=== PATIENT | male | born 1970 | race Caucasian/White ===

== ENCOUNTER 2018-01-08 23:56 | Emergency (ER) | payer MEDICAID ==
[~2018-01-08] VITALS: Ht 170.2 cm; Wt 63.1 kg
[~2018-01-08 23:56] MED LIST: LORA-445 PO; PALI234D IM; QUET100T4 PO; RISP2TAB35 PO
[2018-01-09 01:37] LABS: BASOPHILS # (AUTO) 0.02 x10^3/uL (0-0.1); BASOPHILS % (AUTO) 0 % (0-1); EOSINOPHILS # (AUTO) 0.15 x10^3/uL (0-0.4); EOSINOPHILS % (AUTO) 2 % (1-7); LYMPHOCYTES # (AUTO) 1.46 x10^3/uL (1-3.4); LYMPHOCYTES % (AUTO) 20 % (22-44); MD NO; MEAN CORPUSCULAR HEMOGLOBIN 30.1 pg (27.5-34.5); MEAN CORPUSCULAR HGB CONC 33.2 g/dL (33.2-36.2); MEAN CORPUSCULAR VOLUME 90.6 fL (81-97); MEAN PLATELET VOLUME 7.4 fL (7.4-10.4); MONOCYTES % (AUTO) 12 % (2-9); NEUTROPHILS # (AUTO) 4.97 x10^3/uL (1.8-6.8); NEUTROPHILS % (AUTO) 66 % (42-75); PLATELET COUNT 249 x10^3/uL (130-400); RED BLOOD COUNT 4.81 x10^6/uL (4.38-5.82); RED CELL DISTRIBUTION WIDTH 14.9 % (9.4-14.8)
[2018-01-09 01:45] LABS: ALANINE AMINOTRANSFERASE 20 U/L (12-78); ALBUMIN 3.4 g/dL (3.4-5.0); ANION GAP 7 mmol/L (5-15); CALCIUM 8.2 mg/dL (8.5-10.1); CHLORIDE 109 mmol/L (98-107); CREATININE 0.98 mg/dL (0.7-1.3)
[2018-01-09 01:47] LABS: ALKALINE PHOSPHATASE 59 U/L (45-117); BILIRUBIN,TOTAL 0.3 mg/dL (0.2-1.0); TOTAL PROTEIN 6.6 g/dL (6.4-8.2)
[2018-01-09 02:11] VITALS: BP 110/67
== END 2018-01-09 02:14 | disposition home or self-care (01) ==
LOC: ED 23:59
DX: R10.9 Unspecified abdominal pain (principal); Z72.9 Problem related to lifestyle, unspecified
CPT/HCPCS: 36415; 80053; 83690; 85025; 99284

== ENCOUNTER 2018-04-20 17:04 | Emergency (ER) | payer MEDICAID ==
[~2018-04-20] VITALS: Ht 177.8 cm; Wt 70.0 kg
[2018-04-20 17:38] VITALS: BP 92/53
[2018-04-20 18:03] LABS: BASOPHILS # (AUTO) 0.07 x10^3/uL (0-0.1); BASOPHILS % (AUTO) 1 % (0-1); EOSINOPHILS # (AUTO) 0.34 x10^3/uL (0-0.4); EOSINOPHILS % (AUTO) 5 % (1-7); LYMPHOCYTES # (AUTO) 1.72 x10^3/uL (1-3.4); LYMPHOCYTES % (AUTO) 27 % (22-44); MD NO; MEAN CORPUSCULAR HEMOGLOBIN 30.4 pg (27.5-34.5); MEAN CORPUSCULAR HGB CONC 33.8 g/dL (33.2-36.2); MEAN CORPUSCULAR VOLUME 89.8 fL (81-97); MEAN PLATELET VOLUME 7.4 fL (7.4-10.4); MONOCYTES # (AUTO) 0.58 x10^3/uL (0.2-0.8); MONOCYTES % (AUTO) 9 % (2-9); NEUTROPHILS % (AUTO) 57 % (42-75); PLATELET COUNT 251 x10^3/uL (130-400); RED BLOOD COUNT 4.66 x10^6/uL (4.38-5.82); RED CELL DISTRIBUTION WIDTH 14.8 % (9.4-14.8)
[2018-04-20 18:12] LABS: ALBUMIN 3.3 g/dL (3.4-5.0); ANION GAP 7 mmol/L (5-15); CHLORIDE 110 mmol/L (98-107); CREATININE 0.98 mg/dL (0.7-1.3); SALICYLATE LEVEL 3.8 mg/dL (2.8-20.0)
[2018-04-20 18:16] LABS: ACETAMINOPHEN < 2 mcg/mL (10-30)
== END 2018-04-20 18:48 | disposition home or self-care (01) ==
LOC: ED 18:25
DX: Z00.00 Encounter for general adult medical examination without abnormal findings (principal); R62.7 Adult failure to thrive; F17.200 Nicotine dependence, unspecified, uncomplicated
CPT/HCPCS: 36415; 80048; 80307; 80329; 82040; 85025; 99284; G0480

== ENCOUNTER 2018-04-21 17:57 | Emergency (ER) | payer MEDICAID ==
[2018-04-21 18:05] VITALS: BP 146/70
[2018-04-21] MEDS ORDERED: MAALOX/HYOSCYAMINE/LIDOCAINE 45 ML BTL ONE (18:07)
[2018-04-21] MEDS ORDERED: MAALOX/HYOSCYAMINE/LIDOCAINE 45 ML BTL PO ONE (18:30)
[2018-04-21 18:38] LABS: ALANINE AMINOTRANSFERASE 15 U/L (12-78); ALBUMIN 3.3 g/dL (3.4-5.0); ANION GAP 6 mmol/L (5-15); CALCIUM 8.7 mg/dL (8.5-10.1); CHLORIDE 110 mmol/L (98-107); CREATININE 1.14 mg/dL (0.7-1.3)
[2018-04-21 18:40] LABS: ALKALINE PHOSPHATASE 68 U/L (45-117); BILIRUBIN,TOTAL 0.3 mg/dL (0.2-1.0); TOTAL PROTEIN 6.8 g/dL (6.4-8.2)
[2018-04-21 18:50] LABS: BASOPHILS # (AUTO) 0.04 x10^3/uL (0-0.1); BASOPHILS % (AUTO) 0 % (0-1); EOSINOPHILS # (AUTO) 0.22 x10^3/uL (0-0.4); EOSINOPHILS % (AUTO) 2 % (1-7); LYMPHOCYTES # (AUTO) 1.27 x10^3/uL (1-3.4); LYMPHOCYTES % (AUTO) 13 % (22-44); MD NO; MEAN CORPUSCULAR HEMOGLOBIN 30.2 pg (27.5-34.5); MEAN CORPUSCULAR HGB CONC 33.8 g/dL (33.2-36.2); MEAN CORPUSCULAR VOLUME 89.4 fL (81-97); MEAN PLATELET VOLUME 7.6 fL (7.4-10.4); MONOCYTES # (AUTO) 0.52 x10^3/uL (0.2-0.8); MONOCYTES % (AUTO) 5 % (2-9); NEUTROPHILS # (AUTO) 7.58 x10^3/uL (1.8-6.8); NEUTROPHILS % (AUTO) 79 % (42-75); PLATELET COUNT 290 x10^3/uL (130-400); RED BLOOD COUNT 5.01 x10^6/uL (4.38-5.82)
== END 2018-04-21 19:22 | disposition home or self-care (01) ==
LOC: ED 19:15
DX: R10.12 Left upper quadrant pain (principal)
CPT/HCPCS: 36415; 80053; 83690; 85025; 93005; 99285

== ENCOUNTER 2018-05-23 11:03 | Emergency (ER) | payer MEDICAID | END 2018-05-23 12:19 | disposition left against medical advice (07) | LOC: ED 12:13 | DX: R51 Headache (principal); Z53.21 Procedure and treatment not carried out due to patient leaving prior to being seen by health care provider ==

== ENCOUNTER 2018-06-10 09:03 | Emergency (ER) | payer MEDICAID ==
[~2018-06-10] VITALS: Ht 172.7 cm; Wt 61.3 kg
[2018-06-10 09:08] VITALS: BP 93/62
[2018-06-10] MEDS ORDERED: ALBUTEROL/IPRATROPIUM 2.5MG/0.5MG, 3 ML NPPB SCH (10:00)
[2018-06-10] MEDS ORDERED: ALBUTEROL/IPRATROPIUM 2.5MG/0.5MG, 3 ML ONE (10:13)
== END 2018-06-10 10:34 | disposition home or self-care (01) ==
LOC: ED 10:20
DX: J00 Acute nasopharyngitis [common cold] (principal); F17.210 Nicotine dependence, cigarettes, uncomplicated
CPT/HCPCS: 71046; 94640; 99284; J7620

== ENCOUNTER 2018-07-19 19:54 | Emergency (ER) | payer MEDICAID ==
[~2018-07-19] VITALS: Ht 172.7 cm; Wt 61.9 kg
[~2018-07-19 19:54] MED LIST changes: +RISP0.2518 PO
[2018-07-19 21:02] LABS: BASOPHILS # (AUTO) 0.03 x10^3/uL (0-0.1); BASOPHILS % (AUTO) 0 % (0-1); EOSINOPHILS # (AUTO) 0.25 x10^3/uL (0-0.4); EOSINOPHILS % (AUTO) 3 % (1-7); LYMPHOCYTES # (AUTO) 1.77 x10^3/uL (1-3.4); LYMPHOCYTES % (AUTO) 21 % (22-44); MD NO; MEAN CORPUSCULAR HEMOGLOBIN 30.8 pg (27.5-34.5); MEAN CORPUSCULAR VOLUME 90.8 fL (81-97); MEAN PLATELET VOLUME 7.3 fL (7.4-10.4); MONOCYTES % (AUTO) 6 % (2-9); NEUTROPHILS # (AUTO) 5.86 x10^3/uL (1.8-6.8); NEUTROPHILS % (AUTO) 70 % (42-75); PLATELET COUNT 275 x10^3/uL (130-400); RED BLOOD COUNT 4.92 x10^6/uL (4.38-5.82); RED CELL DISTRIBUTION WIDTH 14.9 % (9.4-14.8)
[2018-07-19 21:18] LABS: ALANINE AMINOTRANSFERASE 19 U/L (12-78); ALBUMIN 3.7 g/dL (3.4-5.0); ANION GAP 6 mmol/L (5-15); CALCIUM 8.8 mg/dL (8.5-10.1); CHLORIDE 111 mmol/L (98-107)
[2018-07-19 21:20] LABS: ALKALINE PHOSPHATASE 68 U/L (45-117); BILIRUBIN,TOTAL 0.2 mg/dL (0.2-1.0); CREATININE 1.81 mg/dL (0.7-1.3); TOTAL PROTEIN 7.3 g/dL (6.4-8.2)
[2018-07-20 00:25] LABS: CULTURE INDICATED? NO; MICROSCOPIC NOT IND
[2018-07-20] MEDS ORDERED: METOCLOPRAMIDE 5 MG/ML, 2ML IVPush ONE (01:00)
[2018-07-20] MEDS ORDERED: SODIUM CHLORIDE 0.9% 1,000ML IVBOLUS ONE (01:00)
[2018-07-20] MEDS ORDERED: METOCLOPRAMIDE 5 MG/ML, 2ML ONE (01:13)
[2018-07-20 01:50] LABS: AMPHETAMINE SCREEN, URINE Positive (Negative); BARBITURATE SCREEN, URINE Negative (Negative); BENZODIAZEPINE SCREEN, URINE Negative (Negative); CANNABINOID SCREEN, URINE Negative (Negative); COCAINE SCREEN, URINE Negative (Negative); METHADONE SCREEN, URINE Negative (Negative); OPIATE SCREEN, URINE Negative (Negative)
[2018-07-20 02:29] VITALS: BP 102/61
== END 2018-07-20 02:31 | disposition home or self-care (01) ==
LOC: ED 07-20 00:07
DX: R11.2 Nausea with vomiting, unspecified (principal); E86.0 Dehydration; F15.129 Other stimulant abuse with intoxication, unspecified; N17.9 Acute kidney failure, unspecified
CPT/HCPCS: 36415; 80053; 80307; 81003; 85025; 96361; 96374; 99284; J2765; J7030

== ENCOUNTER 2018-07-20 15:09 | Emergency (ER) | payer MEDICAID ==
[~2018-07-20] VITALS: Ht 172.7 cm; Wt 62.0 kg
[2018-07-20] MEDS ORDERED: ONDANSETRON ODT 4 MG PO ONE (15:30)
[2018-07-20] MEDS ORDERED: ONDANSETRON ODT 4 MG ONE (15:33)
[2018-07-20 15:48] LABS: BASOPHILS # (AUTO) 0.05 x10^3/uL (0-0.1); BASOPHILS % (AUTO) 1 % (0-1); EOSINOPHILS # (AUTO) 0.11 x10^3/uL (0-0.4); EOSINOPHILS % (AUTO) 1 % (1-7); LYMPHOCYTES # (AUTO) 1.34 x10^3/uL (1-3.4); LYMPHOCYTES % (AUTO) 18 % (22-44); MD NO; MEAN CORPUSCULAR HEMOGLOBIN 30.8 pg (27.5-34.5); MEAN CORPUSCULAR HGB CONC 33.7 g/dL (33.2-36.2); MEAN CORPUSCULAR VOLUME 91.2 fL (81-97); MEAN PLATELET VOLUME 7.3 fL (7.4-10.4); MONOCYTES % (AUTO) 8 % (2-9); NEUTROPHILS # (AUTO) 5.54 x10^3/uL (1.8-6.8); NEUTROPHILS % (AUTO) 73 % (42-75); PLATELET COUNT 285 x10^3/uL (130-400); RED BLOOD COUNT 4.71 x10^6/uL (4.38-5.82); RED CELL DISTRIBUTION WIDTH 14.5 % (9.4-14.8)
[2018-07-20 15:54] LABS: ALBUMIN 3.5 g/dL (3.4-5.0); ANION GAP 4 mmol/L (5-15); CALCIUM 8.6 mg/dL (8.5-10.1); CHLORIDE 107 mmol/L (98-107); CREATININE 1.34 mg/dL (0.7-1.3)
[2018-07-20 16:17] VITALS: BP 98/63
== END 2018-07-20 17:14 | disposition home or self-care (01) ==
LOC: ED 16:56
DX: R11.2 Nausea with vomiting, unspecified (principal); E86.0 Dehydration; N17.9 Acute kidney failure, unspecified
CPT/HCPCS: 36415; 80048; 82040; 85025; 99284; Q0162

== ENCOUNTER 2018-07-20 17:26 | Emergency (ER) | payer MEDICAID ==
[~2018-07-20] VITALS: Ht 172.7 cm; Wt 62.3 kg
[2018-07-20 17:27] VITALS: BP 100/63
[2018-07-20] MEDS ORDERED: ONDANSETRON ODT 4 MG PO ONE (18:00)
[2018-07-20] MEDS ORDERED: ONDANSETRON ODT 4 MG ONE (18:02)
== END 2018-07-20 18:31 | disposition home or self-care (01) ==
LOC: ED 18:25
DX: R11.2 Nausea with vomiting, unspecified (principal)
CPT/HCPCS: 99283; Q0162

== ENCOUNTER 2018-08-11 19:41 | Emergency (ER) | payer MEDICAID ==
[~2018-08-11] VITALS: Ht 172.7 cm; Wt 63.3 kg
[2018-08-11 19:47] VITALS: BP 100/62
[2018-08-11 20:13] LABS: BASOPHILS # (AUTO) 0.04 x10^3/uL (0-0.1); BASOPHILS % (AUTO) 1 % (0-1); EOSINOPHILS # (AUTO) 0.25 x10^3/uL (0-0.4); EOSINOPHILS % (AUTO) 3 % (1-7); LYMPHOCYTES # (AUTO) 2.18 x10^3/uL (1-3.4); LYMPHOCYTES % (AUTO) 27 % (22-44); MD NO; MEAN CORPUSCULAR HEMOGLOBIN 30.2 pg (27.5-34.5); MEAN CORPUSCULAR HGB CONC 33.3 g/dL (33.2-36.2); MEAN CORPUSCULAR VOLUME 90.7 fL (81-97); MONOCYTES # (AUTO) 0.54 x10^3/uL (0.2-0.8); MONOCYTES % (AUTO) 7 % (2-9); NEUTROPHILS # (AUTO) 5.16 x10^3/uL (1.8-6.8); NEUTROPHILS % (AUTO) 63 % (42-75); PLATELET COUNT 303 x10^3/uL (130-400); RED BLOOD COUNT 4.62 x10^6/uL (4.38-5.82); RED CELL DISTRIBUTION WIDTH 14.5 % (9.4-14.8)
[2018-08-11 20:22] LABS: ALANINE AMINOTRANSFERASE 14 U/L (12-78); ALBUMIN 3.5 g/dL (3.4-5.0); ANION GAP 5 mmol/L (5-15); CALCIUM 8.5 mg/dL (8.5-10.1); CHLORIDE 108 mmol/L (98-107); CREATININE 0.99 mg/dL (0.7-1.3)
[2018-08-11 20:24] LABS: ALKALINE PHOSPHATASE 69 U/L (45-117); BILIRUBIN,TOTAL 0.4 mg/dL (0.2-1.0)
[2018-08-11 20:58] LABS: MICROSCOPIC NOT IND
[2018-08-11 21:00] LABS: CULTURE INDICATED? NO
== END 2018-08-11 21:47 | disposition home or self-care (01) ==
LOC: ED 19:45
DX: G89.29 Other chronic pain (principal); R10.12 Left upper quadrant pain; R10.32 Left lower quadrant pain; F20.9 Schizophrenia, unspecified; Z79.899 Other long term (current) drug therapy
CPT/HCPCS: 36415; 80053; 80307; 81003; 83690; 85025; 99284

== ENCOUNTER 2018-08-21 18:36 | Emergency (ER) | payer MEDICAID ==
[~2018-08-21] VITALS: Ht 172.7 cm; Wt 70.0 kg
[2018-08-21] MEDS ORDERED: ONDANSETRON ODT 4 MG ONE (19:45)
[2018-08-21] MEDS ORDERED: ONDANSETRON ODT 4 MG PO ONE (20:00)
[2018-08-21 20:11] LABS: BASOPHILS # (AUTO) 0.03 x10^3/uL (0-0.1); BASOPHILS % (AUTO) 1 % (0-1); EOSINOPHILS # (AUTO) 0.17 x10^3/uL (0-0.4); EOSINOPHILS % (AUTO) 2 % (1-7); LYMPHOCYTES % (AUTO) 23 % (22-44); MD NO; MEAN CORPUSCULAR HEMOGLOBIN 30.4 pg (27.5-34.5); MEAN CORPUSCULAR HGB CONC 33.5 g/dL (33.2-36.2); MEAN CORPUSCULAR VOLUME 90.6 fL (81-97); MEAN PLATELET VOLUME 7.4 fL (7.4-10.4); MONOCYTES # (AUTO) 0.68 x10^3/uL (0.2-0.8); MONOCYTES % (AUTO) 9 % (2-9); NEUTROPHILS # (AUTO) 4.72 x10^3/uL (1.8-6.8); NEUTROPHILS % (AUTO) 65 % (42-75); PLATELET COUNT 254 x10^3/uL (130-400); RED BLOOD COUNT 4.64 x10^6/uL (4.38-5.82); RED CELL DISTRIBUTION WIDTH 14.9 % (9.4-14.8)
[2018-08-21 20:22] LABS: ALANINE AMINOTRANSFERASE 18 U/L (12-78); ALBUMIN 3.2 g/dL (3.4-5.0); ANION GAP 7 mmol/L (5-15); CALCIUM 8.4 mg/dL (8.5-10.1); CHLORIDE 111 mmol/L (98-107); CREATININE 0.91 mg/dL (0.7-1.3)
[2018-08-21 20:25] LABS: ALKALINE PHOSPHATASE 65 U/L (45-117); BILIRUBIN,TOTAL 0.4 mg/dL (0.2-1.0); TOTAL PROTEIN 6.7 g/dL (6.4-8.2)
[2018-08-21 21:36] VITALS: BP 92/49
== END 2018-08-21 21:53 | disposition home or self-care (01) ==
LOC: ED 21:47
DX: R11.2 Nausea with vomiting, unspecified (principal); R10.84 Generalized abdominal pain; F20.9 Schizophrenia, unspecified
CPT/HCPCS: 36415; 80053; 83690; 85025; 99284; Q0162

== ENCOUNTER 2018-08-22 13:53 | Emergency (ER) | payer MEDICAID ==
[~2018-08-22] VITALS: Ht 172.7 cm; Wt 70.0 kg
[2018-08-22 14:05] VITALS: BP 99/57
== END 2018-08-22 15:50 | disposition home or self-care (01) ==
LOC: ED 14:41
DX: M94.0 Chondrocostal junction syndrome [Tietze] (principal); R07.89 Other chest pain; F15.10 Other stimulant abuse, uncomplicated; F20.9 Schizophrenia, unspecified
CPT/HCPCS: 36415; 71045; 84484; 99285

== ENCOUNTER 2018-08-22 16:00 | Emergency (ER) | payer MEDICAID ==
[~2018-08-22] VITALS: Ht 172.7 cm; Wt 63.0 kg
[2018-08-22 16:03] VITALS: BP 112/78
== END 2018-08-22 21:59 | disposition left against medical advice (07) ==
LOC: ED 16:09
DX: J11.1 Influenza due to unidentified influenza virus with other respiratory manifestations (principal)
CPT/HCPCS: 93005; 99283

== ENCOUNTER 2018-08-24 16:38 | Emergency (ER) | payer MEDICAID ==
[~2018-08-24] VITALS: Ht 172.7 cm; Wt 61.2 kg
[2018-08-24] MEDS ORDERED: ONDANSETRON ODT 4 MG PO ONE ×2 (17:00→17:30)
[2018-08-24] MEDS ORDERED: ONDANSETRON ODT 4 MG ONE (17:07)
[2018-08-24 17:24] LABS: BASOPHILS # (AUTO) 0.05 x10^3/uL (0-0.1); BASOPHILS % (AUTO) 1 % (0-1); EOSINOPHILS # (AUTO) 0.14 x10^3/uL (0-0.4); EOSINOPHILS % (AUTO) 2 % (1-7); LYMPHOCYTES # (AUTO) 1.56 x10^3/uL (1-3.4); LYMPHOCYTES % (AUTO) 19 % (22-44); MD NO; MEAN CORPUSCULAR HEMOGLOBIN 30.2 pg (27.5-34.5); MEAN CORPUSCULAR VOLUME 91.4 fL (81-97); MEAN PLATELET VOLUME 7.4 fL (7.4-10.4); MONOCYTES % (AUTO) 8 % (2-9); NEUTROPHILS # (AUTO) 5.95 x10^3/uL (1.8-6.8); NEUTROPHILS % (AUTO) 71 % (42-75); PLATELET COUNT 273 x10^3/uL (130-400); RED BLOOD COUNT 4.72 x10^6/uL (4.38-5.82); RED CELL DISTRIBUTION WIDTH 15.1 % (9.4-14.8)
[2018-08-24 17:31] LABS: ALBUMIN 3.5 g/dL (3.4-5.0); ANION GAP 5 mmol/L (5-15); CALCIUM 8.2 mg/dL (8.5-10.1); CHLORIDE 109 mmol/L (98-107)
[2018-08-24 17:35] LABS: ALANINE AMINOTRANSFERASE 20 U/L (12-78); ALKALINE PHOSPHATASE 67 U/L (45-117); BILIRUBIN,TOTAL 0.4 mg/dL (0.2-1.0); CREATININE 0.83 mg/dL (0.7-1.3); TOTAL PROTEIN 7.1 g/dL (6.4-8.2)
[2018-08-24] MEDS ORDERED: MAALOX/HYOSCYAMINE/LIDOCAINE 45 ML BTL ONE (18:36)
[2018-08-24 18:40] VITALS: BP 90/56
[2018-08-24] MEDS ORDERED: MAALOX/HYOSCYAMINE/LIDOCAINE 45 ML BTL PO ONE (19:00)
== END 2018-08-24 19:10 | disposition home or self-care (01) ==
LOC: ED 17:06
DX: K29.20 Alcoholic gastritis without bleeding (principal); F10.220 Alcohol dependence with intoxication, uncomplicated; F17.210 Nicotine dependence, cigarettes, uncomplicated
CPT/HCPCS: 36415; 80053; 83690; 85025; 99284; Q0162

== ENCOUNTER 2018-08-28 17:23 | Emergency (ER) | payer MEDICAID ==
[~2018-08-28] VITALS: Ht 175.3 cm; Wt 150.0 kg
[2018-08-28 17:32] VITALS: BP 93/59
== END 2018-08-28 17:57 | disposition home or self-care (01) ==
LOC: ED 17:30
DX: R10.84 Generalized abdominal pain (principal); F20.9 Schizophrenia, unspecified
CPT/HCPCS: 99283

== ENCOUNTER 2018-09-10 19:12 | Emergency (ER) | payer MEDICAID ==
[~2018-09-10] VITALS: Ht 172.7 cm; Wt 70.0 kg
[2018-09-10 19:14] VITALS: BP 114/79
[2018-09-10 19:32] LABS: BASOPHILS # (AUTO) 0.04 x10^3/uL (0-0.1); BASOPHILS % (AUTO) 1 % (0-1); EOSINOPHILS # (AUTO) 0.17 x10^3/uL (0-0.4); EOSINOPHILS % (AUTO) 2 % (1-7); LYMPHOCYTES # (AUTO) 1.48 x10^3/uL (1-3.4); LYMPHOCYTES % (AUTO) 19 % (22-44); MD NO; MEAN CORPUSCULAR HEMOGLOBIN 30.1 pg (27.5-34.5); MEAN CORPUSCULAR HGB CONC 33.1 g/dL (33.2-36.2); MEAN PLATELET VOLUME 7.1 fL (7.4-10.4); MONOCYTES # (AUTO) 0.88 x10^3/uL (0.2-0.8); MONOCYTES % (AUTO) 11 % (2-9); NEUTROPHILS # (AUTO) 5.36 x10^3/uL (1.8-6.8); NEUTROPHILS % (AUTO) 68 % (42-75); PLATELET COUNT 372 x10^3/uL (130-400); RED BLOOD COUNT 4.76 x10^6/uL (4.38-5.82)
[2018-09-10 19:44] LABS: ALANINE AMINOTRANSFERASE 18 U/L (12-78); ALBUMIN 3.2 g/dL (3.4-5.0); ANION GAP 8 mmol/L (5-15); CALCIUM 8.7 mg/dL (8.5-10.1); CHLORIDE 109 mmol/L (98-107); CREATININE 0.93 mg/dL (0.7-1.3)
[2018-09-10 19:46] LABS: ALKALINE PHOSPHATASE 73 U/L (45-117); BILIRUBIN,TOTAL 0.3 mg/dL (0.2-1.0); TOTAL PROTEIN 6.9 g/dL (6.4-8.2)
== END 2018-09-10 21:07 | disposition home or self-care (01) ==
LOC: ED 19:34
DX: R10.32 Left lower quadrant pain (principal)
CPT/HCPCS: 36415; 80053; 83690; 85025; 99284

== ENCOUNTER 2018-09-19 15:39 | Emergency (ER) | payer MEDICAID ==
[~2018-09-19] VITALS: Ht 170.2 cm; Wt 61.7 kg
[2018-09-19 15:57] VITALS: BP 117/80
== END 2018-09-19 18:04 | disposition home or self-care (01) ==
LOC: ED 16:20
DX: Z00.00 Encounter for general adult medical examination without abnormal findings (principal); F17.210 Nicotine dependence, cigarettes, uncomplicated
CPT/HCPCS: 82962; 99282; 99406

== ENCOUNTER 2018-10-06 16:27 | Emergency (ER) | payer MEDICAID ==
[~2018-10-06] VITALS: Ht 172.7 cm; Wt 63.8 kg
[2018-10-06 17:23] LABS: BASOPHILS # (AUTO) 0.04 x10^3/uL (0-0.1); BASOPHILS % (AUTO) 0 % (0-1); EOSINOPHILS # (AUTO) 0.13 x10^3/uL (0-0.4); EOSINOPHILS % (AUTO) 2 % (1-7); LYMPHOCYTES # (AUTO) 1.47 x10^3/uL (1-3.4); LYMPHOCYTES % (AUTO) 19 % (22-44); MD NO; MEAN CORPUSCULAR HEMOGLOBIN 30.6 pg (27.5-34.5); MEAN CORPUSCULAR HGB CONC 33.6 g/dL (33.2-36.2); MEAN CORPUSCULAR VOLUME 91.1 fL (81-97); MEAN PLATELET VOLUME 7.2 fL (7.4-10.4); MONOCYTES # (AUTO) 0.61 x10^3/uL (0.2-0.8); MONOCYTES % (AUTO) 8 % (2-9); NEUTROPHILS % (AUTO) 72 % (42-75); PLATELET COUNT 295 x10^3/uL (130-400); RED BLOOD COUNT 4.82 x10^6/uL (4.38-5.82); RED CELL DISTRIBUTION WIDTH 15.5 % (9.4-14.8)
[2018-10-06 17:26] LABS: ALANINE AMINOTRANSFERASE 21 U/L (12-78); ALBUMIN 3.6 g/dL (3.4-5.0); ANION GAP 3 mmol/L (5-15); CALCIUM 8.3 mg/dL (8.5-10.1); CHLORIDE 107 mmol/L (98-107); CREATININE 1.09 mg/dL (0.7-1.3)
[2018-10-06 17:28] LABS: ALKALINE PHOSPHATASE 67 U/L (45-117); BILIRUBIN,TOTAL 0.4 mg/dL (0.2-1.0); TOTAL PROTEIN 7.3 g/dL (6.4-8.2)
[2018-10-06 18:32] VITALS: BP 101/58
== END 2018-10-06 18:54 | disposition home or self-care (01) ==
LOC: ED 18:19
DX: K29.00 Acute gastritis without bleeding (principal); Z59.0 Homelessness; F17.200 Nicotine dependence, unspecified, uncomplicated; F20.9 Schizophrenia, unspecified
CPT/HCPCS: 36415; 74021; 80053; 85025; 99284

== ENCOUNTER 2018-10-09 13:55 | Emergency (ER) | payer MEDICAID | END 2018-10-09 15:27 | LOC: ED 15:00 | DX: R10.9 Unspecified abdominal pain (principal); Z53.21 Procedure and treatment not carried out due to patient leaving prior to being seen by health care provider ==

== ENCOUNTER 2018-12-25 20:58 | Emergency (ER) | payer MEDICAID ==
[~2018-12-25] VITALS: Ht 172.7 cm; Wt 63.4 kg
[2018-12-25 21:06] VITALS: BP 101/62
[2018-12-25] MEDS ORDERED: IBUPROFEN 200 MG TABLET ONE (21:52)
[2018-12-25] MEDS ORDERED: IBUPROFEN 200 MG TABLET PO ONE (22:00)
== END 2018-12-25 22:03 | disposition home or self-care (01) ==
LOC: ED 21:57
DX: M79.672 Pain in left foot (principal); M79.671 Pain in right foot; F20.9 Schizophrenia, unspecified
CPT/HCPCS: 99283

== ENCOUNTER 2019-02-09 17:42 | Emergency (ER) | payer MEDICAID ==
[~2019-02-09] VITALS: Ht 162.6 cm; Wt 61.1 kg
[2019-02-09 17:44] VITALS: BP 137/78
--- NOTE | 2019-02-09 18:18 | NUR ---
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
--- NOTE | 2019-02-09 18:20 | NUR ---
BS CTA. NO SIGNS RESP DISTRSS. CURRENTLY HOMELESS.
--- NOTE | 2019-02-09 18:59 | NUR ---
REPORT RECEIVED FROM MANUELA KNIGHT.
--- NOTE | 2019-02-09 19:00 | NUR ---
report to Tahira KNIGHT. Pt has possibly eloped. Gown on bed.
--- NOTE | 2019-02-09 19:14 | NUR ---
PT GIVEN DC INSTRUCTIONS AND SCRIPT. PT EDUCATED REGARDING DC MEDICATION. PT AMB TO DC WITH STEADY GAIT. NO ACUTE DISTRESS AT DC.
== END 2019-02-09 19:14 | disposition home or self-care (01) ==
LOC: ED 18:27
DX: R07.89 Other chest pain (principal); F20.9 Schizophrenia, unspecified
CPT/HCPCS: 71046; 93005; 99283

== ENCOUNTER 2019-02-10 19:23 | Emergency (ER) | payer MEDICAID ==
[~2019-02-10] VITALS: Ht 172.7 cm; Wt 60.5 kg
[2019-02-10 19:42] VITALS: BP 102/65
--- NOTE | 2019-02-10 20:44 | NUR ---
PT. TO ED WITH C/O VOIMING X 2 OVER THE LAST 2 HOURS. DENIES ABD PAIN OR OTHER SYMPTOMS. LABS HAVE BEEN DRAWN; URINAL AT BS AND PT. AWARE OF NEED FOR SAMPLE. CALL LIGHT IN REACH. ALL SAFEYT MEASURES OBSERVED.
--- NOTE | 2019-02-10 20:59 | NUR ---
REQUESTED PT. TO PROVIDE URINE SAMPLE.
[2019-02-10 21:00] LABS: BASOPHILS # (AUTO) 0.02 x10^3/uL (0-0.1); BASOPHILS % (AUTO) 0 % (0-1); EOSINOPHILS # (AUTO) 0.23 x10^3/uL (0-0.4); EOSINOPHILS % (AUTO) 3 % (1-7); LYMPHOCYTES # (AUTO) 2.04 x10^3/uL (1-3.4); LYMPHOCYTES % (AUTO) 27 % (22-44); MD NO; MEAN CORPUSCULAR HEMOGLOBIN 30.3 pg (27.5-34.5); MEAN CORPUSCULAR VOLUME 89.1 fL (81-97); MEAN PLATELET VOLUME 7.6 fL (7.4-10.4); MONOCYTES # (AUTO) 0.75 x10^3/uL (0.2-0.8); MONOCYTES % (AUTO) 10 % (2-9); NEUTROPHILS # (AUTO) 4.42 x10^3/uL (1.8-6.8); NEUTROPHILS % (AUTO) 59 % (42-75); PLATELET COUNT 217 x10^3/uL (130-400); RED BLOOD COUNT 4.32 x10^6/uL (4.38-5.82); RED CELL DISTRIBUTION WIDTH 15.6 % (9.4-14.8)
[2019-02-10 21:05] LABS: ALANINE AMINOTRANSFERASE 23 U/L (12-78); ALBUMIN 3.5 g/dL (3.4-5.0); ANION GAP 6 mmol/L (5-15); CALCIUM 8.1 mg/dL (8.5-10.1); CHLORIDE 111 mmol/L (98-107)
[2019-02-10 21:07] LABS: ALKALINE PHOSPHATASE 66 U/L (45-117); BILIRUBIN,TOTAL 0.4 mg/dL (0.2-1.0); TOTAL PROTEIN 6.4 g/dL (6.4-8.2)
== END 2019-02-10 21:35 | disposition home or self-care (01) ==
LOC: ED 21:30
DX: R11.2 Nausea with vomiting, unspecified (principal); F17.200 Nicotine dependence, unspecified, uncomplicated
CPT/HCPCS: 36415; 80053; 83690; 85025; 99283

== ENCOUNTER 2019-02-11 17:24 | Emergency (ER) | payer MEDICAID ==
[~2019-02-11] VITALS: Ht 172.7 cm; Wt 61.4 kg
--- NOTE | 2019-02-11 17:30 | NUR ---
SKIN PEELING MACHINE OPERATOR. NO ANSWER X1 TO TRIAGE AT THIS TIME
[2019-02-11 17:32] VITALS: BP 110/69
[2019-02-11 18:15] LABS: ALBUMIN 3.9 g/dL (3.4-5.0); ANION GAP 4 mmol/L (5-15); CALCIUM 8.6 mg/dL (8.5-10.1); CHLORIDE 110 mmol/L (98-107)
[2019-02-11 18:16] LABS: BASOPHILS # (AUTO) 0.07 x10^3/uL (0-0.1); BASOPHILS % (AUTO) 1 % (0-1); EOSINOPHILS # (AUTO) 0.16 x10^3/uL (0-0.4); EOSINOPHILS % (AUTO) 2 % (1-7); LYMPHOCYTES # (AUTO) 1.04 x10^3/uL (1-3.4); LYMPHOCYTES % (AUTO) 11 % (22-44); MD NO; MEAN CORPUSCULAR HEMOGLOBIN 30.1 pg (27.5-34.5); MEAN CORPUSCULAR HGB CONC 33.6 g/dL (33.2-36.2); MEAN CORPUSCULAR VOLUME 89.6 fL (81-97); MEAN PLATELET VOLUME 7.5 fL (7.4-10.4); MONOCYTES # (AUTO) 0.83 x10^3/uL (0.2-0.8); MONOCYTES % (AUTO) 9 % (2-9); NEUTROPHILS # (AUTO) 7.67 x10^3/uL (1.8-6.8); NEUTROPHILS % (AUTO) 79 % (42-75); PLATELET COUNT 256 x10^3/uL (130-400); RED BLOOD COUNT 4.54 x10^6/uL (4.38-5.82); RED CELL DISTRIBUTION WIDTH 15.5 % (9.4-14.8)
[2019-02-11 18:19] LABS: ALANINE AMINOTRANSFERASE 22 U/L (12-78); ALKALINE PHOSPHATASE 67 U/L (45-117); BILIRUBIN,TOTAL 0.4 mg/dL (0.2-1.0); CREATININE 0.89 mg/dL (0.7-1.3); TOTAL PROTEIN 7.2 g/dL (6.4-8.2)
[2019-02-11 18:32] LABS: MICROSCOPIC INDICATED
[2019-02-11 18:43] LABS: CULTURE INDICATED? NO
--- NOTE | 2019-02-11 19:49 | NUR ---
TUBE DISPATCHER TO ROOM PT. NAx1 AT THIS TIME.
[2019-02-11 20:02] LABS: AMPHETAMINE SCREEN, URINE Negative (Negative); BARBITURATE SCREEN, URINE Negative (Negative); BENZODIAZEPINE SCREEN, URINE Negative (Negative); CANNABINOID SCREEN, URINE Negative (Negative); COCAINE SCREEN, URINE Negative (Negative); METHADONE SCREEN, URINE Negative (Negative); OPIATE SCREEN, URINE Negative (Negative)
--- NOTE | 2019-02-11 20:05 | NUR ---
NILX2
--- NOTE | 2019-02-11 20:25 | NUR ---
NILX3
== END 2019-02-11 20:26 | disposition left against medical advice (07) ==
LOC: ED 20:20
DX: R10.9 Unspecified abdominal pain (principal); R11.2 Nausea with vomiting, unspecified
CPT/HCPCS: 36415; 80053; 80307; 81001; 83690; 85025; 99283

== ENCOUNTER 2019-02-14 19:40 | Emergency (ER) | payer MEDICAID ==
[~2019-02-14] VITALS: Ht 172.7 cm; Wt 62.4 kg
--- NOTE | 2019-02-14 20:40 | NUR ---
PT PRESENTS TO ED WITH C/O MIDLINE LOWER ABD PAIN FOR LAST FEW DAYS, PT DENIES N/V/D. DENIES DIFFICULTY VOIDING/DYSURIA. PT IS DROWSY BUT ORIENTED X 4, NEURO INTACT. PT SMELLS OF ETOH BUT DENIES USE TODAY. CALL LIGHT IN REACH. BED LOCKED AND IN LOWEST POSITION. AWAITING LABS AND DISPO.
[2019-02-14 20:43] LABS: BASOPHILS # (AUTO) 0.03 x10^3/uL (0-0.1); BASOPHILS % (AUTO) 1 % (0-1); EOSINOPHILS # (AUTO) 0.19 x10^3/uL (0-0.4); EOSINOPHILS % (AUTO) 3 % (1-7); LYMPHOCYTES # (AUTO) 1.52 x10^3/uL (1-3.4); LYMPHOCYTES % (AUTO) 27 % (22-44); MD NO; MEAN CORPUSCULAR HEMOGLOBIN 30.4 pg (27.5-34.5); MEAN CORPUSCULAR HGB CONC 34.1 g/dL (33.2-36.2); MEAN CORPUSCULAR VOLUME 89.1 fL (81-97); MEAN PLATELET VOLUME 6.9 fL (7.4-10.4); MONOCYTES # (AUTO) 0.57 x10^3/uL (0.2-0.8); MONOCYTES % (AUTO) 10 % (2-9); NEUTROPHILS # (AUTO) 3.35 x10^3/uL (1.8-6.8); NEUTROPHILS % (AUTO) 59 % (42-75); PLATELET COUNT 252 x10^3/uL (130-400); RED BLOOD COUNT 4.33 x10^6/uL (4.38-5.82); RED CELL DISTRIBUTION WIDTH 15.7 % (9.4-14.8)
[2019-02-14 20:53] LABS: ALANINE AMINOTRANSFERASE 24 U/L (12-78); ALBUMIN 3.3 g/dL (3.4-5.0); ANION GAP 4 mmol/L (5-15); CALCIUM 8.5 mg/dL (8.5-10.1); CHLORIDE 110 mmol/L (98-107); CREATININE 1.06 mg/dL (0.7-1.3)
[2019-02-14 20:55] LABS: ALKALINE PHOSPHATASE 60 U/L (45-117); BILIRUBIN,TOTAL 0.5 mg/dL (0.2-1.0); TOTAL PROTEIN 6.3 g/dL (6.4-8.2)
[2019-02-14 22:29] VITALS: BP 112/69
== END 2019-02-14 22:32 | disposition home or self-care (01) ==
LOC: ED 21:14
DX: G89.29 Other chronic pain (principal); R10.84 Generalized abdominal pain
CPT/HCPCS: 36415; 80053; 83690; 85025; 99283

== ENCOUNTER 2019-02-15 01:36 | Emergency (ER) | payer MEDICAID | END 2019-02-15 02:15 | disposition left against medical advice (07) | LOC: ED 01:49 | DX: Z53.21 Procedure and treatment not carried out due to patient leaving prior to being seen by health care provider (principal) ==

== ENCOUNTER 2019-02-19 20:46 | Emergency (ER) | payer MEDICAID ==
[~2019-02-19] VITALS: Ht 172.7 cm; Wt 75.0 kg
[2019-02-19 21:04] VITALS: BP 99/65
--- NOTE | 2019-02-19 23:12 | NUR ---
pt called to room from lobby
[2019-02-19 23:35] LABS: BASOPHILS # (AUTO) 0.03 x10^3/uL (0-0.1); BASOPHILS % (AUTO) 0 % (0-1); EOSINOPHILS # (AUTO) 0.29 x10^3/uL (0-0.4); EOSINOPHILS % (AUTO) 4 % (1-7); LYMPHOCYTES # (AUTO) 2.06 x10^3/uL (1-3.4); LYMPHOCYTES % (AUTO) 27 % (22-44); MD NO; MEAN CORPUSCULAR HEMOGLOBIN 30.7 pg (27.5-34.5); MEAN CORPUSCULAR HGB CONC 34.2 g/dL (33.2-36.2); MEAN CORPUSCULAR VOLUME 89.8 fL (81-97); MEAN PLATELET VOLUME 6.8 fL (7.4-10.4); MONOCYTES # (AUTO) 0.71 x10^3/uL (0.2-0.8); MONOCYTES % (AUTO) 9 % (2-9); NEUTROPHILS # (AUTO) 4.56 x10^3/uL (1.8-6.8); NEUTROPHILS % (AUTO) 60 % (42-75); PLATELET COUNT 304 x10^3/uL (130-400); RED BLOOD COUNT 4.29 x10^6/uL (4.38-5.82); RED CELL DISTRIBUTION WIDTH 16.4 % (9.4-14.8)
[2019-02-19 23:42] LABS: ALBUMIN 3.3 g/dL (3.4-5.0); ANION GAP 3 mmol/L (5-15); CALCIUM 8.2 mg/dL (8.5-10.1); CHLORIDE 109 mmol/L (98-107)
[2019-02-19 23:50] LABS: ALANINE AMINOTRANSFERASE 25 U/L (12-78); ALKALINE PHOSPHATASE 64 U/L (45-117); BILIRUBIN,TOTAL 0.2 mg/dL (0.2-1.0); CREATININE 1.07 mg/dL (0.7-1.3); TOTAL PROTEIN 6.3 g/dL (6.4-8.2); TROPONIN I < 0.015 ng/mL (0.000-0.045)
== END 2019-02-20 00:28 | disposition home or self-care (01) ==
LOC: ED 23:56
DX: R07.2 Precordial pain (principal); Z72.9 Problem related to lifestyle, unspecified; F20.9 Schizophrenia, unspecified
CPT/HCPCS: 36415; 71046; 80053; 83880; 84484; 85025; 93005; 99284

== ENCOUNTER 2019-02-21 04:23 | Emergency (ER) | payer MEDICAID ==
[~2019-02-21] VITALS: Ht 172.7 cm; Wt 64.6 kg
[2019-02-21 04:25] VITALS: BP 95/60
--- NOTE | 2019-02-21 04:32 | NUR ---
pt presented with c/o nausea x couple days. medical student at pt's bedside, monitors applied, siderails up x2, call light within reach
[2019-02-21] MEDS ORDERED: ONDANSETRON ODT 4 MG ONE (04:36)
--- NOTE | 2019-02-21 04:39 | NUR ---
PT MEDICATED PER MAR
--- NOTE | 2019-02-21 04:53 | NUR ---
pt resting on zakiya, reviewed d/c papers, pt verbalized understanding, pt refusing to leave after being d/c'd.
--- NOTE | 2019-02-21 04:55 | NUR ---
pt continoues to refuse to leave after d/c, security paged for escort out of hospital
[2019-02-21] MEDS ORDERED: ONDANSETRON ODT 4 MG PO ONE (05:00)
== END 2019-02-21 04:59 | disposition home or self-care (01) ==
LOC: ED 04:50
DX: R11.2 Nausea with vomiting, unspecified (principal); Z72.9 Problem related to lifestyle, unspecified; Z87.891 Personal history of nicotine dependence
CPT/HCPCS: 99282; Q0162

== ENCOUNTER 2019-02-23 04:42 | Emergency (ER) | payer MEDICAID ==
[~2019-02-23] VITALS: Ht 172.7 cm; Wt 64.3 kg
[2019-02-23 04:46] VITALS: BP 97/66
[2019-02-23] MEDS ORDERED: MAALOX/HYOSCYAMINE/LIDOCAINE 45 ML BTL PO ONE (05:00)
[2019-02-23] MEDS ORDERED: MAALOX/HYOSCYAMINE/LIDOCAINE 45 ML BTL ONE (05:08)
[2019-02-23 05:19] LABS: BASOPHILS # (AUTO) 0.03 x10^3/uL (0-0.1); BASOPHILS % (AUTO) 0 % (0-1); EOSINOPHILS # (AUTO) 0.24 x10^3/uL (0-0.4); EOSINOPHILS % (AUTO) 3 % (1-7); LYMPHOCYTES # (AUTO) 1.86 x10^3/uL (1-3.4); LYMPHOCYTES % (AUTO) 20 % (22-44); MD NO; MEAN CORPUSCULAR HEMOGLOBIN 30.5 pg (27.5-34.5); MEAN CORPUSCULAR HGB CONC 33.9 g/dL (33.2-36.2); MEAN PLATELET VOLUME 6.8 fL (7.4-10.4); MONOCYTES # (AUTO) 0.87 x10^3/uL (0.2-0.8); MONOCYTES % (AUTO) 9 % (2-9); NEUTROPHILS # (AUTO) 6.24 x10^3/uL (1.8-6.8); NEUTROPHILS % (AUTO) 68 % (42-75); PLATELET COUNT 338 x10^3/uL (130-400); RED BLOOD COUNT 4.68 x10^6/uL (4.38-5.82); RED CELL DISTRIBUTION WIDTH 15.9 % (9.4-14.8)
[2019-02-23 05:29] LABS: ALBUMIN 3.6 g/dL (3.4-5.0); ANION GAP 3 mmol/L (5-15); CALCIUM 8.6 mg/dL (8.5-10.1); CHLORIDE 108 mmol/L (98-107); CREATININE 1.12 mg/dL (0.7-1.3)
== END 2019-02-23 06:03 | disposition home or self-care (01) ==
LOC: ED 05:10
DX: R10.32 Left lower quadrant pain (principal)
CPT/HCPCS: 36415; 80048; 82040; 85025; 99283

== ENCOUNTER 2019-03-06 01:59 | Emergency (ER) | payer MEDICAID | END 2019-03-06 02:07 | disposition left against medical advice (07) | LOC: ED 02:00 | DX: R11.0 Nausea (principal); Z53.21 Procedure and treatment not carried out due to patient leaving prior to being seen by health care provider ==

== ENCOUNTER 2019-07-11 21:44 | Emergency (ER) | payer MEDICAID ==
[~2019-07-11] VITALS: Ht 172.7 cm; Wt 60.6 kg
[2019-07-11 21:46] VITALS: BP 97/66
--- NOTE | 2019-07-11 22:54 | NUR ---
PT BACK TO ROOM 4 AND ASSUMED PT CARE.
--- NOTE | 2019-07-11 22:55 | NUR ---
PT IMMEDIATELY INTO ROOM AND REQUESTING BLANKETS AND THE LIGHTS OFF, FACE INTO PILLOW AND EYES CLOSED. PT IS RELUCTANT TO ANSWER QUESTIONS BUT EVENTUALLY STATES HE HAS HAD "SOME VOMITING" FOR "A FEW DAYS." DENIES ABD PAIN, FEVER, OR OTHER SX.
--- NOTE | 2019-07-11 23:55 | NUR ---
PT REFUSED D/C BLOOD PRESSURE. AMBULATORY OUT OF THE ED, REFUSED TO STOP AT REGISTRATION DESK.
== END 2019-07-11 23:56 | disposition home or self-care (01) ==
LOC: ED 23:45
DX: R11.0 Nausea (principal); Z72.9 Problem related to lifestyle, unspecified; Z75.9 Unspecified problem related to medical facilities and other health care; Z91.14 Patient's other noncompliance with medication regimen; Z63.8 Other specified problems related to primary support group; Z87.891 Personal history of nicotine dependence
CPT/HCPCS: 99283

== ENCOUNTER 2020-01-08 11:17 | Emergency (ER) | payer MEDICAID ==
[~2020-01-08] VITALS: Ht 172.7 cm; Wt 61.1 kg
--- NOTE | 2020-01-08 11:24 | NUR ---
BIB [facility], FOUND SLEEPING ON SIDEWALK. PER EMS PT IS NAUSEOUS AND STATES "DON'T FEEL WELL."
--- NOTE | 2020-01-08 13:09 | NUR ---
CALLED PT NO ANSWER
--- NOTE | 2020-01-08 13:25 | NUR ---
Pt placed on gurney in gown, eyes closed, even respirations, denies additional needs at this time. Dorian DO at bedside assessing and discussing plan of care with pt. JESSA BUTT.
[2020-01-08] MEDS ORDERED: ONDANSETRON ODT 4 MG PO ONE (13:30)
[2020-01-08 13:53] LABS: BASOPHILS # (AUTO) 0.02 x10^3/uL (0-0.1); BASOPHILS % (AUTO) 0 % (0-1); EOSINOPHILS % (AUTO) 1 % (1-7); LYMPHOCYTES # (AUTO) 1.06 x10^3/uL (1-3.4); LYMPHOCYTES % (AUTO) 14 % (22-44); MD NO; MEAN CORPUSCULAR HEMOGLOBIN 29.6 pg (27.5-34.5); MEAN CORPUSCULAR VOLUME 89.5 fL (81-97); MEAN PLATELET VOLUME 7.1 fL (7.4-10.4); MONOCYTES # (AUTO) 0.44 x10^3/uL (0.2-0.8); MONOCYTES % (AUTO) 6 % (2-9); NEUTROPHILS # (AUTO) 5.97 x10^3/uL (1.8-6.8); NEUTROPHILS % (AUTO) 79 % (42-75); PLATELET COUNT 286 x10^3/uL (130-400); RED BLOOD COUNT 4.54 x10^6/uL (4.38-5.82); RED CELL DISTRIBUTION WIDTH 15.3 % (9.4-14.8)
[2020-01-08 13:54] LABS: ALANINE AMINOTRANSFERASE 75 U/L (12-78); ALBUMIN 3.7 g/dL (3.4-5.0); ANION GAP 5 mmol/L (5-15); CALCIUM 8.8 mg/dL (8.5-10.1); CHLORIDE 108 mmol/L (98-107)
[2020-01-08 13:56] LABS: ALKALINE PHOSPHATASE 59 U/L (45-117); BILIRUBIN,TOTAL 0.4 mg/dL (0.2-1.0); TOTAL PROTEIN 7.1 g/dL (6.4-8.2)
[2020-01-08] MEDS ORDERED: ONDANSETRON ODT 4 MG ONE (13:56)
--- NOTE | 2020-01-08 13:58 | NUR ---
Pt given medication for nausea, see MAR. Given warm blankets to provide extra warmth. Pt denies additional needs at this time. NAD, even and unlabored respirations. WCTM.
--- NOTE | 2020-01-08 15:18 | NUR ---
PT ABLE TO EAT CRACKERS AND DRINK A SODA FOLLOWED BY A BOWL OF CEREAL WITH NO NAUSEA. UP TO PHONE IN [facility] TO CALL [facility] AND CHECK IN WITH OUTPATIENT
[2020-01-08 15:19] VITALS: BP 90/62
== END 2020-01-08 16:05 | disposition home or self-care (01) ==
LOC: ED 12:17
DX: R11.2 Nausea with vomiting, unspecified (principal)
CPT/HCPCS: 36415; 80053; 85025; 99283; Q0162

== ENCOUNTER 2020-02-01 21:12 | Emergency (ER) | payer MEDICAID ==
[~2020-02-01] VITALS: Ht 170.2 cm; Wt 70.0 kg
[2020-02-01 21:18] VITALS: BP 125/84
[2020-02-01] MEDS ORDERED: RISPERIDONE 2 MG TABLET ONE (21:29)
[2020-02-01] MEDS ORDERED: RISPERIDONE 1 MG TABLET PO ONE (21:30)
== END 2020-02-01 21:39 | disposition home or self-care (01) ==
LOC: ED 21:15
DX: F20.0 Paranoid schizophrenia (principal); F41.1 Generalized anxiety disorder; Z72.9 Problem related to lifestyle, unspecified; Z76.0 Encounter for issue of repeat prescription; F17.200 Nicotine dependence, unspecified, uncomplicated
CPT/HCPCS: 99283

== ENCOUNTER 2020-02-14 02:37 | Emergency (ER) | payer MEDICAID ==
[~2020-02-14] VITALS: Ht 165.1 cm; Wt 68.2 kg
[2020-02-14 02:46] VITALS: BP 111/56
--- NOTE | 2020-02-14 02:51 | NUR ---
FINESSE GALEAS IN TO EVAL PT. PT. ADMITTED TO HER "I JUST NEED A BED". WHEN SHE EXPLAINED THAT THIS WASN'T A PLACE TO COME "JUST FOR A BED" HE STATES "I WAS PUKING BLOOD". PT. VERY UNCOOPERATIVE. REPORT TO EUGENE LOPES TO ASSUME CARE OF PT.
== END 2020-02-14 03:30 ==
LOC: ED 03:24
DX: R11.10 Vomiting, unspecified (principal); F17.210 Nicotine dependence, cigarettes, uncomplicated; Z72.9 Problem related to lifestyle, unspecified
CPT/HCPCS: 71045; 99283

== ENCOUNTER 2020-02-25 18:57 | Emergency (ER) | payer MEDICAID ==
[~2020-02-25] VITALS: Ht 172.7 cm; Wt 80.0 kg
--- NOTE | 2020-02-25 19:07 | NUR ---
Pt states he has been puking blood started "earlier today" pt describes vomit as red.
[2020-02-25] MEDS ORDERED: RISP2TAB35 PO (19:13)
[2020-02-25 19:38] LABS: BASOPHILS # (AUTO) 0.08 x10^3/uL (0-0.1); BASOPHILS % (AUTO) 1 % (0-1); EOSINOPHILS # (AUTO) 0.11 x10^3/uL (0-0.4); EOSINOPHILS % (AUTO) 2 % (1-7); LYMPHOCYTES # (AUTO) 1.64 x10^3/uL (1-3.4); LYMPHOCYTES % (AUTO) 24 % (22-44); MD NO; MEAN CORPUSCULAR HEMOGLOBIN 29.6 pg (27.5-34.5); MEAN CORPUSCULAR HGB CONC 32.8 g/dL (33.2-36.2); MEAN CORPUSCULAR VOLUME 90.3 fL (81-97); MONOCYTES # (AUTO) 0.64 x10^3/uL (0.2-0.8); MONOCYTES % (AUTO) 9 % (2-9); NEUTROPHILS # (AUTO) 4.43 x10^3/uL (1.8-6.8); NEUTROPHILS % (AUTO) 64 % (42-75); PLATELET COUNT 329 x10^3/uL (130-400); RED BLOOD COUNT 4.71 x10^6/uL (4.38-5.82); RED CELL DISTRIBUTION WIDTH 15.9 % (9.4-14.8)
[2020-02-25 19:46] LABS: ALANINE AMINOTRANSFERASE 18 U/L (12-78); ALBUMIN 3.3 g/dL (3.4-5.0); ANION GAP 4 mmol/L (5-15); CALCIUM 8.5 mg/dL (8.5-10.1); CHLORIDE 108 mmol/L (98-107)
--- NOTE | 2020-02-25 19:47 | NUR ---
SLEEPING IN NO ACUTE DISTRESS, RESPIRATIONS EVEN AND UNLABORED. CALL LIGHT WITHIN REACH.
[2020-02-25 19:49] LABS: ALKALINE PHOSPHATASE 61 U/L (45-117); BILIRUBIN,TOTAL 0.2 mg/dL (0.2-1.0); CREATININE 0.98 mg/dL (0.7-1.3); TOTAL PROTEIN 6.9 g/dL (6.4-8.2)
[2020-02-25 19:58] VITALS: BP 97/59
== END 2020-02-25 20:19 | disposition home or self-care (01) ==
LOC: ED 19:29
DX: K92.0 Hematemesis (principal); K92.2 Gastrointestinal hemorrhage, unspecified; Z72.9 Problem related to lifestyle, unspecified
CPT/HCPCS: 36415; 80053; 83690; 85025; 99283

== ENCOUNTER 2020-03-09 18:21 | Emergency (ER) | payer MEDICAID ==
[~2020-03-09] VITALS: Ht 172.7 cm; Wt 69.0 kg
--- NOTE | 2020-03-09 18:39 | NUR ---
Pt BIB [facility]-c/o vomiting blood, fever, cough x3-4 days. Pt denies pain, speaking in full sentences, resp even and unlabored. Pt ambulatory into room from [facility] ambulance with steady gait, immediately lay facedown on the gurney, difficult to illicit responces to questions from pt. Pt is A&O x4, provided hospital gown to change into as well as warm blankets.
[2020-03-09] MEDS ORDERED: ONDANSETRON 2MG/ML, 2ML ONE (18:59)
[2020-03-09] MEDS ORDERED: FAMOTIDINE 20 MG/2 ML ONE (18:59)
[2020-03-09] MEDS ORDERED: SODIUM CHLORIDE 0.9% 1,000ML IVBOLUS ONE (19:00)
[2020-03-09] MEDS ORDERED: ONDANSETRON 2MG/ML, 2ML IVPush ONE (19:00)
[2020-03-09] MEDS ORDERED: FAMOTIDINE 20 MG/2 ML IVPush ONE (19:00)
[2020-03-09] MEDS ORDERED: SODIUM CHLORIDE FLUSH 10ML SYR IVF ONE (19:00)
--- NOTE | 2020-03-09 19:05 | NUR ---
REPORT TO EUGENE SÁNCHEZ.
--- NOTE | 2020-03-09 19:05 | NUR ---
PT REPORT FROM EUGENE MCINTOSH. PT CARE TO BE ASSUMED.
[2020-03-09 19:07] LABS: BASOPHILS # (AUTO) 0.05 x10^3/uL (0-0.1); BASOPHILS % (AUTO) 1 % (0-1); EOSINOPHILS # (AUTO) 0.17 x10^3/uL (0-0.4); EOSINOPHILS % (AUTO) 2 % (1-7); LYMPHOCYTES # (AUTO) 1.33 x10^3/uL (1-3.4); LYMPHOCYTES % (AUTO) 18 % (22-44); MD NO; MEAN CORPUSCULAR HEMOGLOBIN 29.8 pg (27.5-34.5); MEAN CORPUSCULAR HGB CONC 33.2 g/dL (33.2-36.2); MEAN CORPUSCULAR VOLUME 89.9 fL (81-97); MEAN PLATELET VOLUME 7.7 fL (7.4-10.4); MONOCYTES # (AUTO) 0.55 x10^3/uL (0.2-0.8); MONOCYTES % (AUTO) 8 % (2-9); NEUTROPHILS # (AUTO) 5.21 x10^3/uL (1.8-6.8); NEUTROPHILS % (AUTO) 71 % (42-75); PLATELET COUNT 248 x10^3/uL (130-400); RED CELL DISTRIBUTION WIDTH 15.7 % (9.4-14.8)
[2020-03-09 19:19] LABS: ALANINE AMINOTRANSFERASE 20 U/L (12-78); ANION GAP 6 mmol/L (5-15); CHLORIDE 111 mmol/L (98-107)
[2020-03-09 19:21] LABS: ALKALINE PHOSPHATASE 58 U/L (45-117); BILIRUBIN,TOTAL 0.4 mg/dL (0.2-1.0); TOTAL PROTEIN 6.3 g/dL (6.4-8.2)
--- NOTE | 2020-03-09 20:03 | NUR ---
PT ASLEEP; EASILY AWAKENED. IV SITE ASSESSED: 20G R FA, UPPER; SITE PATENT. NS BOLUS HUNG.
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
[2020-03-09 21:05] VITALS: BP 103/61
== END 2020-03-09 21:08 | disposition home or self-care (01) ==
LOC: ED 18:34
DX: K29.20 Alcoholic gastritis without bleeding (principal); R11.2 Nausea with vomiting, unspecified
CPT/HCPCS: 36415; 71045; 80053; 83690; 85025; 96361; 96374; 96375; 99284; J2405; J3490; J7030

== ENCOUNTER 2020-03-15 16:13 | Emergency (ER) | payer MEDICAID ==
[~2020-03-15] VITALS: Ht 172.7 cm; Wt 62.8 kg
[2020-03-15 16:16] VITALS: BP 100/64
== END 2020-03-15 17:13 | disposition home or self-care (01) ==
LOC: ED 16:30
DX: R05 Cough (principal); F17.200 Nicotine dependence, unspecified, uncomplicated; I95.9 Hypotension, unspecified
CPT/HCPCS: 71045; 99283

== ENCOUNTER 2020-03-15 18:51 | Emergency (ER) | payer MEDICAID ==
[~2020-03-15] VITALS: Ht 167.6 cm; Wt 62.3 kg
[2020-03-15 18:57] VITALS: BP 106/54
--- NOTE | 2020-03-15 19:42 | NUR ---
RN TO DC PT. PT NO LONGER IN DEPARTMENT. NO BELONGINGS LEFT BEHIND. PT ASSUMED TO HAVE LEFT.
== END 2020-03-15 19:44 | disposition home or self-care (01) ==
LOC: ED 19:38
DX: G89.11 Acute pain due to trauma (principal); M79.604 Pain in right leg; R05 Cough
CPT/HCPCS: 99281

== ENCOUNTER 2020-04-12 11:31 | Emergency (ER) | payer MEDICAID ==
[~2020-04-12] VITALS: Ht 172.7 cm; Wt 62.4 kg
[2020-04-12 11:32] VITALS: BP 100/56
[2020-04-12] MEDS ORDERED: SODIUM CHLORIDE 0.9% 1,000ML IVBOLUS ONE (12:00)
[2020-04-12] MEDS ORDERED: SODIUM CHLORIDE FLUSH 10ML SYR IVF ONE (12:00)
[2020-04-12 12:13] LABS: BASOPHILS # (AUTO) 0.02 x10^3/uL (0-0.1); BASOPHILS % (AUTO) 0 % (0-1); EOSINOPHILS # (AUTO) 0.03 x10^3/uL (0-0.4); EOSINOPHILS % (AUTO) 0 % (1-7); LYMPHOCYTES % (AUTO) 13 % (22-44); MD NO; MEAN CORPUSCULAR HEMOGLOBIN 29.5 pg (27.5-34.5); MEAN CORPUSCULAR VOLUME 89.5 fL (81-97); MEAN PLATELET VOLUME 7.4 fL (7.4-10.4); MONOCYTES # (AUTO) 0.42 x10^3/uL (0.2-0.8); MONOCYTES % (AUTO) 6 % (2-9); NEUTROPHILS # (AUTO) 5.54 x10^3/uL (1.8-6.8); NEUTROPHILS % (AUTO) 80 % (42-75); PLATELET COUNT 299 x10^3/uL (130-400); RED BLOOD COUNT 4.65 x10^6/uL (4.38-5.82); RED CELL DISTRIBUTION WIDTH 15.1 % (9.4-14.8)
--- NOTE | 2020-04-12 12:21 | NUR ---
PT WAS EXTREMELY INTOLERANT OF NG TUBE. HE WAS PULLING IT OUT. NOT COOPERATING. HE SAID "I AM JUST GOING TO LEAVE". PT WAS EDUCATED ON THE FACT THAT HE COULD IF HE LEAVES AMA. HE UNDERSTOOD THIS, SIGNED THE A PAPERWORK AND LEAVE.
[2020-04-12 12:24] LABS: INTERNATIONAL NORMALIZED RATIO 1.01 (0.93-1.1); PROTHROMBIN TIME 10.7 Seconds (9.6-11.5)
[2020-04-12 12:26] LABS: ALBUMIN 3.1 g/dL (3.4-5.0); ANION GAP 5 mmol/L (5-15); CALCIUM 8.2 mg/dL (8.5-10.1); CHLORIDE 110 mmol/L (98-107)
[2020-04-12 12:29] LABS: ALANINE AMINOTRANSFERASE 14 U/L (12-78); ALKALINE PHOSPHATASE 95 U/L (45-117); BILIRUBIN,TOTAL 0.5 mg/dL (0.2-1.0); CREATININE 0.92 mg/dL (0.7-1.3); TOTAL PROTEIN 6.7 g/dL (6.4-8.2)
== END 2020-04-12 12:26 | disposition left against medical advice (07) ==
LOC: ED 12:18
DX: K92.2 Gastrointestinal hemorrhage, unspecified (principal)
CPT/HCPCS: 36415; 80053; 83690; 85025; 85610; 85730; 86850; 86900; 99283

== ENCOUNTER 2020-04-12 15:47 | Emergency (ER) | payer MEDICAID ==
[~2020-04-12] VITALS: Ht 167.6 cm; Wt 65.0 kg
[2020-04-12 16:04] VITALS: BP 134/62
--- NOTE | 2020-04-12 16:11 | NUR ---
PT LEFT ED PRIOR TO BE SEEN.
== END 2020-04-12 16:12 | disposition home or self-care (01) ==
LOC: ED 16:00
DX: M79.606 Pain in leg, unspecified (principal); F20.9 Schizophrenia, unspecified; F17.200 Nicotine dependence, unspecified, uncomplicated
CPT/HCPCS: 99281

== ENCOUNTER 2020-06-18 21:37 | Emergency (ER) | payer MEDICAID ==
[~2020-06-18] VITALS: Ht 172.7 cm; Wt 70.0 kg
[2020-06-18] MEDS ORDERED: ONDANSETRON ODT 8 MG PO ONE (22:00)
[2020-06-18] MEDS ORDERED: ONDANSETRON ODT 4 MG ONE (22:01)
--- NOTE | 2020-06-18 22:02 | NUR ---
Attempted to medicate pt for nausea per MAR. Pt refusing med at this time.
--- NOTE | 2020-06-18 22:08 | NUR ---
Pt provided water to drink per Dr. Bloom for PO challenge.
--- NOTE | 2020-06-18 22:14 | NUR ---
Pt tolerating PO fluids well, no N/V. Dr. Bloom updated on this.
--- NOTE | 2020-06-18 23:27 | NUR ---
SLEEPING QUIETLY IN CHAIR, SEATED AT NURSES STATION FOR PT SAFETY AND UNAVAILABILITY OF ROOMS
--- NOTE | 2020-06-19 01:03 | NUR ---
PT UP AND AMBULATING IN [facility], PROVIDED WITH PO FLUIDS AND CAB VOUCHER TO [facility] FOR SAFE DISCHARGE.
[2020-06-19 01:04] VITALS: BP 117/72
== END 2020-06-19 01:06 | disposition home or self-care (01) ==
LOC: ED 21:57
DX: F10.229 Alcohol dependence with intoxication, unspecified (principal); R11.2 Nausea with vomiting, unspecified; Y90.0 Blood alcohol level of less than 20 mg/100 ml
CPT/HCPCS: 99283

== ENCOUNTER 2020-06-28 19:23 | Emergency (ER) | payer MEDICAID ==
[~2020-06-28] VITALS: Ht 172.7 cm; Wt 67.6 kg
--- NOTE | 2020-06-28 19:30 | NUR ---
PATIENT CAME WITH SELENA, PATIENT STATES VOMITING BLOOD FOR PAST FEW DAYS, STATES OCCATIONALLY DRINKING ALCOHOL AND HAVING A "COUPLE BEERS TODAY".
[2020-06-28 19:33] VITALS: BP 112/78
--- NOTE | 2020-06-28 21:00 | NUR ---
PATIENT SLEEPING IN BED, GIVEN TOP SHEET AND PLACED ON CONTINUOUS PULSE OX. SAFETY MEASURES IN PLACE, AND NO S/S OF DISTRESS
--- NOTE | 2020-06-28 22:38 | NUR ---
PRECEPTOR RN: PT AMBULATORY WITH STEADY GAIT.
--- NOTE | 2020-06-28 22:40 | NUR ---
Patient/Caregiver given discharge instructions and they have confirmed that they understand the instructions. Patient ambulatory with steady gait.
== END 2020-06-28 22:46 | disposition home or self-care (01) ==
LOC: ED 22:35
DX: F10.229 Alcohol dependence with intoxication, unspecified (principal); R05 Cough; I10 Essential (primary) hypertension; Y90.9 Presence of alcohol in blood, level not specified
CPT/HCPCS: 99283

== ENCOUNTER 2020-07-07 12:55 | Emergency (ER) | payer MEDICAID ==
[~2020-07-07] VITALS: Ht 172.7 cm; Wt 57.6 kg
--- NOTE | 2020-07-07 13:05 | NUR ---
THIS IS A 49 YO M BIB EMS AFTER FOUND SLEEPING IN FRONT OF [facility]. PIV HATCH TENDER. EMS REPORTS GIVING PT THIAMINE AND 500ML NS BOLUS HATCH TENDER. PT HAD 1 EPISODE OF VOMITING UPON ARRIVAL. PT POSITIONED ON LT SIDE FOR SAFETY. SIDE RAILS UPX2, CALL LIGHT IN REACH. PT CONNECTED TO MONITORING, VSS, NADN. CHELSI KILPATRICK AT BEDSIDE FOR ED EVAL.
[2020-07-07] MEDS ORDERED: ONDANSETRON 2MG/ML, 2ML ONE (13:14)
[2020-07-07] MEDS ORDERED: ONDANSETRON 2MG/ML, 2ML IVPush ONE (13:30)
[2020-07-07 13:39] LABS: BASOPHILS # (AUTO) 0.03 x10^3/uL (0-0.1); BASOPHILS % (AUTO) 0 % (0-1); EOSINOPHILS # (AUTO) 0.08 x10^3/uL (0-0.4); EOSINOPHILS % (AUTO) 1 % (1-7); LYMPHOCYTES # (AUTO) 1.39 x10^3/uL (1-3.4); LYMPHOCYTES % (AUTO) 17 % (22-44); MEAN CORPUSCULAR HEMOGLOBIN 30.3 pg (27.5-34.5); MEAN CORPUSCULAR HGB CONC 33.7 g/dL (33.2-36.2); MEAN CORPUSCULAR VOLUME 89.9 fL (81-97); MEAN PLATELET VOLUME 7.5 fL (7.4-10.4); MONOCYTES # (AUTO) 0.53 x10^3/uL (0.2-0.8); MONOCYTES % (AUTO) 6 % (2-9); NEUTROPHILS # (AUTO) 6.37 x10^3/uL (1.8-6.8); NEUTROPHILS % (AUTO) 76 % (42-75); PLATELET COUNT 299 x10^3/uL (130-400); RED BLOOD COUNT 4.65 x10^6/uL (4.38-5.82); RED CELL DISTRIBUTION WIDTH 16.1 % (9.4-14.8)
--- NOTE | 2020-07-07 13:39 | NUR ---
BREAK RN FOR PRIMARY RN ANGELI. PT RESTING COMFORTABLY, LEFT LATERAL, HEAD OF BED ELEVATED. VSS. 95% RA. RESP REGULAR AND UNLABORED. PT DROWSY, DOZING INTERMITTENTLY, AROUSES TO VERBAL STIMULI. DENIES NAUSEA AND ANY PAIN. FALL PRECAUTIONS IN PLACE. SIDE RAILS UPX2.
[2020-07-07 13:40] LABS: MD NO
--- NOTE | 2020-07-07 13:45 | NUR ---
PT IN CT
[2020-07-07 13:52] LABS: ALANINE AMINOTRANSFERASE 28 U/L (12-78); ALBUMIN 3.3 g/dL (3.4-5.0); ANION GAP 7 mmol/L (5-15); CALCIUM 7.9 mg/dL (8.5-10.1); CHLORIDE 114 mmol/L (98-107); CREATININE 0.74 mg/dL (0.7-1.3)
--- NOTE | 2020-07-07 13:52 | NUR ---
PT BACK FROM CT. NAD NOTED. CONT PULSE OX, BP MONITORS IN PLACE. VSS. PULSE OX 97% RA. RESP REGULAR AND UNLABORED. HOB REMAINS ELEVATED, PT RESTING COMFORTABLY, LEFT LATERAL. DENIES ANY PAIN AND NEED TO USE RESTROOM. SITTER AT DOOR FOR SAFETY OBSERVATION.
[2020-07-07 13:54] LABS: ALKALINE PHOSPHATASE 74 U/L (45-117); BILIRUBIN,TOTAL 0.2 mg/dL (0.2-1.0); TOTAL PROTEIN 6.8 g/dL (6.4-8.2)
--- NOTE | 2020-07-07 14:17 | NUR ---
BREAK RN. BEDSIDE REPORT AND TRANSFER OF CARE BACK TO PRIMARY RN ANGELI AT THIS TIME.
--- NOTE | 2020-07-07 15:59 | NUR ---
PT SLEEPING ON GURNEY W/ CALL LIGHT IN REACH AND SIDE RAILS UPX2. RESP EVEN AND UNLABORED, DAX.
--- NOTE | 2020-07-07 17:00 | NUR ---
PT SLEEPING ON GURNEY W/ CALL LIGHT IN REACH AND SIDE RAILS UPX2. RESP EVEN AND UNLABORED, DAX.
--- NOTE | 2020-07-07 18:00 | NUR ---
PT SLEEPING ON GURNEY W/ CALL LIGHT IN REACH AND SIDE RAILS UPX2. RESP EVEN AND UNLABORED, DAX.
[2020-07-07 18:41] VITALS: BP 98/60
--- NOTE | 2020-07-07 18:47 | NUR ---
PT AMBULATED TO THE BATHROOM. RETURNED TO [facility]. SITTING UP ON [place] EATING SANDWICH. DAX LOUISE. PT AWARE OF POC FOR DC AFTER HE FINISHES EATING.
--- NOTE | 2020-07-07 18:56 | NUR ---
Patient given discharge instructions and they have confirmed that they understand the instructions. Patient ambulatory with steady gait.
== END 2020-07-07 18:56 | disposition home or self-care (01) ==
LOC: ED 13:12
DX: F10.220 Alcohol dependence with intoxication, uncomplicated (principal); I10 Essential (primary) hypertension; R11.2 Nausea with vomiting, unspecified; R41.82 Altered mental status, unspecified; Y90.0 Blood alcohol level of less than 20 mg/100 ml
CPT/HCPCS: 36415; 70450; 72125; 80053; 80307; 85025; 96374; 99285; J2405

== ENCOUNTER 2020-07-07 22:14 | Emergency (ER) | payer MEDICAID ==
[~2020-07-07] VITALS: Ht 172.7 cm; Wt 64.5 kg
[2020-07-07 22:37] VITALS: BP 113/71
--- NOTE | 2020-07-08 01:00 | NUR ---
[facility] Addendum: 07/08/20 at 0115 by GRACE not [facility]
--- NOTE | 2020-07-08 01:15 | NUR ---
not in lobby
--- NOTE | 2020-07-08 01:30 | NUR ---
not in lobby lwbs
== END 2020-07-08 01:33 | disposition left against medical advice (07) ==
LOC: ED 07-08 01:25
DX: F10.10 Alcohol abuse, uncomplicated (principal); R11.10 Vomiting, unspecified
CPT/HCPCS: 99281

== ENCOUNTER 2020-07-08 04:54 | Emergency (ER) | payer MEDICAID ==
[~2020-07-08] VITALS: Ht 172.7 cm; Wt 73.0 kg
[2020-07-08 04:56] VITALS: BP 127/72
--- NOTE | 2020-07-08 06:29 | NUR ---
PT WAS SEEN LEAVING THE LOBBY.
== END 2020-07-08 06:30 | disposition left against medical advice (07) ==
LOC: ED 05:29
DX: R11.0 Nausea (principal); Z53.21 Procedure and treatment not carried out due to patient leaving prior to being seen by health care provider

== ENCOUNTER 2020-07-08 09:13 | Emergency (ER) | payer MEDICAID ==
[~2020-07-08] VITALS: Ht 172.7 cm; Wt 70.0 kg
[2020-07-08 09:20] VITALS: BP 107/70
--- NOTE | 2020-07-08 10:15 | NUR ---
biba for hematemesis and black stool x 3 days , +etoh. denies any other sx. report taken from ems. per ems, pt requested ems after being kicked out of [facility] for loitering. pt is a&o, resps even and unlabored. pt withdrawn but cooperative. pt seen and examined by DANGELO Felder, after being informed of POC to dc by ERP, pt walked out of room without waiting for paperwork. pt had no emesis or stool while in ED. gait steady out of department, no complaint at dc.
== END 2020-07-08 10:33 | disposition home or self-care (01) ==
LOC: ED 09:22
DX: F10.220 Alcohol dependence with intoxication, uncomplicated (principal); K92.0 Hematemesis; I10 Essential (primary) hypertension; Y90.0 Blood alcohol level of less than 20 mg/100 ml
CPT/HCPCS: 99283

== ENCOUNTER 2020-07-11 01:32 | Emergency (ER) | payer MEDICAID ==
[~2020-07-11] VITALS: Ht 172.7 cm; Wt 62.4 kg
[2020-07-11 01:34] VITALS: BP 101/67
== END 2020-07-11 02:12 | disposition left against medical advice (07) ==
LOC: ED 02:00
DX: K92.0 Hematemesis (principal); Z53.21 Procedure and treatment not carried out due to patient leaving prior to being seen by health care provider

== ENCOUNTER 2020-07-13 04:00 | Emergency (ER) | payer MEDICAID ==
[~2020-07-13] VITALS: Ht 172.7 cm; Wt 64.5 kg
[2020-07-13] MEDS ORDERED: ONDANSETRON ODT 4 MG ONE (04:39)
[2020-07-13] MEDS ORDERED: ONDANSETRON ODT 4 MG PO ONE (05:00)
[2020-07-13 06:01] VITALS: BP 98/56
== END 2020-07-13 06:14 | disposition home or self-care (01) ==
LOC: ED 05:30
DX: R11.2 Nausea with vomiting, unspecified (principal); I10 Essential (primary) hypertension; Z59.0 Homelessness
CPT/HCPCS: 99283; Q0162

== ENCOUNTER 2020-07-16 18:22 | Emergency (ER) | payer MEDICAID ==
[~2020-07-16] VITALS: Ht 182.9 cm; Wt 70.0 kg
[2020-07-16 19:10] VITALS: BP 98/67
--- NOTE | 2020-07-16 19:50 | NUR ---
CALLED FOR ROOM, NO ANSWER
--- NOTE | 2020-07-16 20:07 | NUR ---
NO ANSWER TIMES 2
--- NOTE | 2020-07-16 20:37 | NUR ---
called for room, no answer
== END 2020-07-16 20:58 | disposition left against medical advice (07) ==
LOC: ED 20:52
DX: F10.129 Alcohol abuse with intoxication, unspecified (principal); Y90.0 Blood alcohol level of less than 20 mg/100 ml
CPT/HCPCS: 99281; 99283

== ENCOUNTER 2020-07-19 21:30 | Emergency (ER) | payer MEDICAID ==
[~2020-07-19] VITALS: Ht 175.3 cm; Wt 60.0 kg
--- NOTE | 2020-07-19 22:32 | NUR ---
PT IN BED, ATTACHED TO MONITORS, RESTING WITHOUT DISTRESS. CALL LIGHT IN REACH.
--- NOTE | 2020-07-20 00:10 | NUR ---
PT CONTINUES RESTING IN BED, NAD NOTED. CALL LIGHT IN REACH.
[2020-07-20 01:07] VITALS: BP 99/49
== END 2020-07-20 01:21 | disposition home or self-care (01) ==
LOC: ED 07-20 01:09
DX: F10.120 Alcohol abuse with intoxication, uncomplicated (principal); F17.210 Nicotine dependence, cigarettes, uncomplicated; I10 Essential (primary) hypertension
CPT/HCPCS: 99406

== ENCOUNTER 2020-08-24 21:15 | Emergency (ER) | payer MEDICAID ==
[~2020-08-24] VITALS: Ht 172.7 cm; Wt 65.0 kg
--- NOTE | 2020-08-24 21:27 | NUR ---
JUST FLORES FROM [facility] FOR METH W/D, WANTED TO GO BACK BUT THEY REFUSED TO SEE HIM. PT THEN CALLED 911 C/O VOMITS BLOOD AFTER HE DOES METH. ON MONITOR, NSR, CALL NNAMDI IN REACH
[2020-08-24 22:32] LABS: BASOPHILS % (AUTO) 1 % (0-1); EOSINOPHILS % (AUTO) 2 % (1-7); LYMPHOCYTES % (AUTO) 24 % (22-44); MEAN CORPUSCULAR HEMOGLOBIN 30.2 pg (27.5-34.5); MEAN PLATELET VOLUME 7.2 fL (7.4-10.4); MONOCYTES % (AUTO) 9 % (2-9); NEUTROPHILS % (AUTO) 63 % (42-75); PLATELET COUNT 242 x10^3/uL (130-400); RED BLOOD COUNT 4.64 x10^6/uL (4.38-5.82); RED CELL DISTRIBUTION WIDTH 15.8 % (9.4-14.8)
[2020-08-24 22:35] LABS: MD NO
[2020-08-24 22:41] LABS: ALANINE AMINOTRANSFERASE 92 U/L (12-78); ALBUMIN 3.1 g/dL (3.4-5.0); ANION GAP 4 mmol/L (5-15); CALCIUM 8.2 mg/dL (8.5-10.1); CHLORIDE 109 mmol/L (98-107); CREATININE 0.87 mg/dL (0.7-1.3)
[2020-08-24 22:43] LABS: ALKALINE PHOSPHATASE 61 U/L (45-117); BILIRUBIN,TOTAL 0.3 mg/dL (0.2-1.0); TOTAL PROTEIN 6.7 g/dL (6.4-8.2)
[2020-08-24 23:07] VITALS: BP 106/76
== END 2020-08-24 23:10 | disposition home or self-care (01) ==
LOC: ED 21:45
DX: K29.20 Alcoholic gastritis without bleeding (principal); F17.210 Nicotine dependence, cigarettes, uncomplicated; Z72.9 Problem related to lifestyle, unspecified; I10 Essential (primary) hypertension
CPT/HCPCS: 36415; 80053; 80307; 83690; 85025; 99283; 99406

== ENCOUNTER 2020-09-10 03:45 | Emergency (ER) | payer MEDICAID ==
[~2020-09-10] VITALS: Ht 172.7 cm; Wt 65.5 kg
--- NOTE | 2020-09-10 03:58 | NUR ---
CALL NNAMDI, AWAITING ERP EVAL. PT IN NAD.
--- NOTE | 2020-09-10 04:17 | NUR ---
SLEEPING, RR EQUAL AND UNLBORED. WAITING FOR ERP EVAL.
[2020-09-10] MEDS ORDERED: ONDANSETRON ODT 4 MG PO ONE (05:00)
[2020-09-10] MEDS ORDERED: ONDANSETRON ODT 4 MG ONE (05:07)
--- NOTE | 2020-09-10 05:20 | NUR ---
LAB HERE DRAWING BLOOD, PT HAS HAD NO N/V WHILE IN ER. HE HAS BEEN SLEEPING, AND DOES NOT WANT TO ANSWER MANY QUESTIONS. REQUESTED URINE.
[2020-09-10 05:27] LABS: BASOPHILS % (AUTO) 1 % (0-1); EOSINOPHILS % (AUTO) 3 % (1-7); LYMPHOCYTES % (AUTO) 11 % (22-44); MEAN CORPUSCULAR HEMOGLOBIN 30.5 pg (27.5-34.5); MEAN CORPUSCULAR HGB CONC 33.4 g/dL (33.2-36.2); MEAN PLATELET VOLUME 7.2 fL (7.4-10.4); MONOCYTES % (AUTO) 10 % (2-9); NEUTROPHILS % (AUTO) 75 % (42-75); PLATELET COUNT 227 x10^3/uL (130-400); RED BLOOD COUNT 4.72 x10^6/uL (4.38-5.82); RED CELL DISTRIBUTION WIDTH 15.9 % (9.4-14.8)
[2020-09-10 05:39] LABS: MD NO
[2020-09-10 05:40] LABS: ALANINE AMINOTRANSFERASE 324 U/L (12-78); ALBUMIN 3.1 g/dL (3.4-5.0); ANION GAP 4 mmol/L (5-15); CALCIUM 8.1 mg/dL (8.5-10.1); CHLORIDE 109 mmol/L (98-107); CREATININE 0.82 mg/dL (0.7-1.3)
[2020-09-10 05:43] LABS: ALKALINE PHOSPHATASE 85 U/L (45-117); BILIRUBIN,TOTAL 0.5 mg/dL (0.2-1.0); TOTAL PROTEIN 6.8 g/dL (6.4-8.2)
--- NOTE | 2020-09-10 05:44 | NUR ---
sleeping, refuses to give urine sample. says wants to be left alone.
--- NOTE | 2020-09-10 06:15 | NUR ---
SLEEPING, HAS HAD NO VOMITING SINCE ARRIVAL.
--- NOTE | 2020-09-10 06:50 | NUR ---
SLEEPING, NO N/V WHILE IN DEPARTMENT. NO URINE PROVIDED. REQUESTED ERP RE-EVAL AND DISPO.
--- NOTE | 2020-09-10 06:52 | NUR ---
REPORT TO EUGENE RALPH
[2020-09-10 08:25] VITALS: BP 135/91
--- NOTE | 2020-09-10 08:25 | NUR ---
Patient/Caregiver given discharge instructions and they have confirmed that they understand the instructions. Patient ambulatory with steady gait.
== END 2020-09-10 08:27 | disposition home or self-care (01) ==
LOC: ED 04:05
DX: K70.10 Alcoholic hepatitis without ascites (principal); K29.20 Alcoholic gastritis without bleeding; F10.10 Alcohol abuse, uncomplicated; B17.9 Acute viral hepatitis, unspecified; I85.00 Esophageal varices without bleeding; Y90.9 Presence of alcohol in blood, level not specified
CPT/HCPCS: 36415; 74018; 80053; 83690; 85025; 99284; Q0162

== ENCOUNTER 2020-09-23 19:44 | Emergency (ER) | payer MEDICAID ==
[~2020-09-23] VITALS: Ht 172.7 cm; Wt 68.0 kg
[2020-09-23] MEDS ORDERED: PROMETHAZINE 25 MG/ML, 1ML IM ONE (20:00)
[2020-09-23] MEDS ORDERED: PROMETHAZINE 25 MG/ML, 1ML ONE (20:13)
[2020-09-23 20:35] LABS: BASOPHILS % (AUTO) 1 % (0-1); EOSINOPHILS % (AUTO) 5 % (1-7); LYMPHOCYTES % (AUTO) 31 % (22-44); MEAN CORPUSCULAR HEMOGLOBIN 30.5 pg (27.5-34.5); MEAN CORPUSCULAR HGB CONC 33.2 g/dL (33.2-36.2); MEAN PLATELET VOLUME 7.5 fL (7.4-10.4); MONOCYTES % (AUTO) 13 % (2-9); NEUTROPHILS % (AUTO) 51 % (42-75); PLATELET COUNT 281 x10^3/uL (130-400); RED BLOOD COUNT 4.89 x10^6/uL (4.38-5.82); RED CELL DISTRIBUTION WIDTH 16.4 % (9.4-14.8)
[2020-09-23 20:38] LABS: MD NO
[2020-09-23 20:41] LABS: ALBUMIN 3.2 g/dL (3.4-5.0); ANION GAP 5 mmol/L (5-15); CALCIUM 8.1 mg/dL (8.5-10.1); CHLORIDE 109 mmol/L (98-107); CREATININE 0.88 mg/dL (0.7-1.3)
[2020-09-23 20:49] LABS: ALANINE AMINOTRANSFERASE 2329 U/L (12-78); ALKALINE PHOSPHATASE 184 U/L (45-117); BILIRUBIN,TOTAL 1.1 mg/dL (0.2-1.0); TOTAL PROTEIN 6.9 g/dL (6.4-8.2)
[2020-09-23 22:03] VITALS: BP 105/68
--- NOTE | 2020-09-23 23:40 | NUR ---
PT REFUSING ANY MEDICAL TREATMENT. PT SWATTING AT STAFF AND YELLING TO NOT BE BOTHERED. PT REFUSED TO SING AMA FORM. AMA FORM SIGNED BY VIOLET RN AND KRISTY KNIGHT. SECURITCALLED TO ESCORT PT OFF PROPERTY
== END 2020-09-23 23:45 | disposition left against medical advice (07) ==
LOC: ED 21:28
DX: K70.10 Alcoholic hepatitis without ascites (principal); R94.5 Abnormal results of liver function studies; R11.2 Nausea with vomiting, unspecified; F17.210 Nicotine dependence, cigarettes, uncomplicated
CPT/HCPCS: 36415; 76700; 80053; 80307; 83690; 85025; 96372; 99284; 99406; J2550

== ENCOUNTER 2020-10-01 00:30 | Emergency (ER) | payer MEDICAID ==
[~2020-10-01] VITALS: Ht 170.2 cm; Wt 65.9 kg
[2020-10-01 00:32] VITALS: BP 107/57
[2020-10-01] MEDS ORDERED: FAMOTIDINE 20 MG TABLET PO ONE (01:00)
[2020-10-01] MEDS ORDERED: FAMOTIDINE 20 MG TABLET ONE (01:02)
== END 2020-10-01 01:42 | disposition home or self-care (01) ==
LOC: ED 01:00
DX: K29.20 Alcoholic gastritis without bleeding (principal); F10.20 Alcohol dependence, uncomplicated; I10 Essential (primary) hypertension; F17.200 Nicotine dependence, unspecified, uncomplicated; Z72.9 Problem related to lifestyle, unspecified; Y90.9 Presence of alcohol in blood, level not specified
CPT/HCPCS: 99283

== ENCOUNTER 2020-10-02 21:17 | Emergency (ER) | payer MEDICAID ==
[~2020-10-02] VITALS: Ht 172.7 cm; Wt 66.0 kg
[2020-10-02 21:27] VITALS: BP 108/72
== END 2020-10-02 23:13 | disposition home or self-care (01) ==
LOC: ED 23:07
DX: B43.9 Chromomycosis, unspecified (principal); R05 Cough; I10 Essential (primary) hypertension; Z72.9 Problem related to lifestyle, unspecified
CPT/HCPCS: 71045; 99283

== ENCOUNTER 2021-03-03 22:25 | Emergency (ER) | payer MEDICAID ==
[~2021-03-03] VITALS: Ht 172.7 cm; Wt 68.2 kg
--- NOTE | 2021-03-03 23:05 | NUR ---
PT STATES IS TIRED AND WANT A BLANKET. VSS. CALL REMOTE AT BEDSIDE ALL RAILS UP.
--- NOTE | 2021-03-03 23:05 | NUR ---
ALLEN LANDA PT WAS FOUND BY SECURITY IN [facility] PT SAID, "CAN'T WALK HAS BLISTERS ON FEET" SECURITY SAID SAW HIM WALK IN TO THE [facility]. PT STATES "CHEST PAIN THAT STARTED A COUPLE OF DAYS AGO AFTER METH USE" PT VSS. RESTING IN BED STATES HE IS TIRED AND IS SLOW TO ANSWER QUESTIONS.
[2021-03-03 23:12] LABS: TROPONIN I < 0.015 ng/mL (0.000-0.045)
[2021-03-03 23:41] VITALS: BP 103/64
--- NOTE | 2021-03-03 23:51 | NUR ---
Patient given discharge instructions and they have confirmed that they understand the instructions. Patient ambulatory with steady gait. No Quesitons a time of discharge.
== END 2021-03-03 23:52 | disposition home or self-care (01) ==
LOC: ED 23:01
DX: R07.2 Precordial pain (principal); Z72.9 Problem related to lifestyle, unspecified; R94.31 Abnormal electrocardiogram [ECG] [EKG]; F17.200 Nicotine dependence, unspecified, uncomplicated
CPT/HCPCS: 36415; 71045; 84484; 93005; 99285

== ENCOUNTER 2021-06-09 20:55 | Emergency (ER) | payer MEDICAID ==
[~2021-06-09] VITALS: Ht 172.7 cm; Wt 68.2 kg
--- NOTE | 2021-06-09 21:02 | NUR ---
PT AL, PT WAS FOUND BY [facility] ON THE SIDEWALK AND CALLED THE AMBULANCE, PT STATES HE HAD A CASE OF BEER TODAY, PT ASLEEP IN BED, PT SMELLS BAD AND IS UNKEPT, PTS VSS, PT HERE FOR ALCOHOL INTOXICATION, NAD AT THIS TIME
--- NOTE | 2021-06-09 21:50 | NUR ---
PT ASLEEP IN BED, ALL NEEDS IN REACH, CALL LIGHT IN REACH, NAD, VSS
--- NOTE | 2021-06-09 23:14 | NUR ---
PT ASLEEP IN BED, NAD AT THIS TIME
--- NOTE | 2021-06-09 23:32 | NUR ---
PT ABLE TO SIT UP ON HIS OWN AND ANSWER QUESTIONS APPROPRIATELY, PT A/OX3 WHEN AWAKE, PT KNOWS NAME, BIRTHDATE, YEAR, SITUATION, PT ABLE TO AMBULATE ON HIS OWN WELL, PT STEADY ON HIS FEET, PT JUST WANTS TO SLEEP AND REFUSING WATER AT THIS TIME, NAD, VSS
[2021-06-10] VITALS: BP 121/45
== END 2021-06-10 00:03 | disposition home or self-care (01) ==
LOC: ED 21:14
DX: F10.220 Alcohol dependence with intoxication, uncomplicated (principal); F17.210 Nicotine dependence, cigarettes, uncomplicated; I10 Essential (primary) hypertension; Z72.9 Problem related to lifestyle, unspecified; Y90.0 Blood alcohol level of less than 20 mg/100 ml
CPT/HCPCS: 99283; 99406

== ENCOUNTER → 2021-07-31 | Emergency (ER) | payer MEDICAID ==
[~2021-07-31] VITALS: Ht 180.3 cm; Wt 55.6 kg
--- NOTE | 2021-07-31 00:23 | NUR ---
BIBA FOR ETOH. PT DROWSY BUT RESPONSIVE AND WILL ANSWER QUESTIONS. PER EMS BYSTANDER HELPED PT GET PANTS ON BEFORE 911 ARRIVED AND WALKED WITH PT.
--- NOTE | 2021-07-31 01:30 | NUR ---
PT SLEEPING, RESP EVEN AND UNLABORED.
--- NOTE | 2021-07-31 02:38 | NUR ---
PT SLEEPING, RESP EVEN AND UNLABORED.
--- NOTE | 2021-07-31 02:56 | NUR ---
REPORT TO MARIZA KNIGHT
--- NOTE | 2021-07-31 03:03 | NUR ---
PT SLEEPING, RESP EVEN AND UNLABORED. REPORT RECEIVED, PT ON O2 SAT PROBE, 94% ON ROOM AIR. PT RESPONDS TO STIMULI BUT REMAINS DROWSY.
--- NOTE | 2021-07-31 03:55 | NUR ---
PT SLEEPING, RESP EVEN AND UNLABORED.
--- NOTE | 2021-07-31 04:59 | NUR ---
PT AWOKEN, AND IS ABLE TO SIT UP IN BED AND PT AMBULATED TO THE BATHROOM AND BACK. PT GIVEN F/U AND D/C INSTRUCTIONS AND PT V/U. PT AMBULATED TO DISCHARGE DESK, AND OUT OF THE ER.
[2021-07-31 05:00] VITALS: BP 108/65
== END ==
LOC: ED 00:37
DX: F10.129 Alcohol abuse with intoxication, unspecified (principal); R41.82 Altered mental status, unspecified; I10 Essential (primary) hypertension; F17.200 Nicotine dependence, unspecified, uncomplicated; Y90.0 Blood alcohol level of less than 20 mg/100 ml
CPT/HCPCS: 70450; 93005; 99284

== ENCOUNTER 2021-08-03 21:28 | Emergency (ER) | payer MEDICAID ==
[~2021-08-03] VITALS: Ht 172.7 cm; Wt 70.0 kg
[2021-08-04 00:15] VITALS: BP 105/64
--- NOTE | 2021-08-04 00:21 | NUR ---
assumed care of pt from [facility] stoner out, pt has no medical complaint. sitting in chair on wall and sleeping. fredi sainz to see pt.
--- NOTE | 2021-08-04 00:45 | NUR ---
pt given dc paperwork, pt did not take and this rn offered pt cab voucher, pt did not accept and walked out of er. pt instructed to keep wearing mask when coughing, pt would not. amb steady to lobby to dc
== END 2021-08-04 01:06 | disposition home or self-care (01) ==
LOC: ED 21:54
DX: F10.220 Alcohol dependence with intoxication, uncomplicated (principal); Z72.9 Problem related to lifestyle, unspecified; I10 Essential (primary) hypertension; Y90.0 Blood alcohol level of less than 20 mg/100 ml
CPT/HCPCS: 99283

== ENCOUNTER 2021-08-11 22:38 | Emergency (ER) | payer MEDICAID ==
[~2021-08-11] VITALS: Ht 172.7 cm; Wt 75.0 kg
[2021-08-11 22:52] VITALS: BP 107/82
== END 2021-08-12 01:41 | disposition home or self-care (01) ==
LOC: ED 08-12 01:00
DX: R11.2 Nausea with vomiting, unspecified (principal); I10 Essential (primary) hypertension; F17.200 Nicotine dependence, unspecified, uncomplicated